=== PATIENT | male | born 1975 | race Caucasian/White ===

== ENCOUNTER 2020-01-16 22:42 | Inpatient (IN) | payer SELFPAY ==
[2020-01-17] MEDS ORDERED: HYDROCODONE/ACETAMINOPHEN 5-325 MG TABLET PO ONE (00:47)
[2020-01-17] MEDS ORDERED: NORMAL SALINE 1000 ML 1,000 ML IV ONE (00:47)
--- NOTE | 2020-01-17 00:48 | ER Document Report ---
ED Medical Screen (RME) - General Chief Complaint: Insect Bite Stated Complaint: POSS SPIDER BITE Time Seen by Provider: 01/17/20 00:41 Mode of Arrival: Ambulatory Information source: Patient Notes: Patient states that he was cleaning fish 5 days ago and had a puncture wound while cleaning the fish. Patient states that he started to have swelling in hand pain yesterday. Patient reports subjective fever. Patient with significant swelling to the left hand and the left third finger. Patient with exquisite tenderness with attempts to passively extend the left third finger. Patient with erythema to the palmar and dorsal surface of the left hand and left third finger. Patient reports tetanus immunizations currently up-to-date. I have greeted and performed a rapid initial assessment of this patient. A comprehensive ED assessment and evaluation of the patient, analysis of test results and completion of the medical decision making process will be conducted by additional ED providers. Physical Exam - General General appearance: Alert Notes: Erythema to left hand the left third finger with swelling. Patient with puncture wound to dorsal aspect of the left hand although he reports a history of a puncture wound to the palmar surface of the third finger proximal phalanx
[2020-01-17 01:21] LABS: ABSOLUTE BASOPHILS # (AUTO) 0.1 10^3/uL (0.0-0.2); ABSOLUTE EOSINOPHILS # (AUTO) 0.2 10^3/uL (0.0-0.6); ABSOLUTE LYMPHOCYTES (AUTO) 2.5 10^3/uL (0.5-4.7); ABSOLUTE MONOCYTES (AUTO) 1.4 10^3/uL (0.1-1.4); ABSOLUTE NEUT (AUTO) 10.4 10^3/uL (1.7-8.2); BASOPHILS % (AUTO) 0.4 % (0-2); EOSINOPHILS % (AUTO) 1.6 % (0-6); HEMATOCRIT 39.2 % (37.9-51.0); HEMOGLOBIN 13.4 g/dL (13.5-17.0); LYMPHOCYTES % (AUTO) 17.5 % (13-45); MEAN CORPUSCULAR HEMOGLOBIN 29.3 pg (27.0-33.4); MEAN CORPUSCULAR HGB CONC 34.2 g/dL (32.0-36.0); MEAN CORPUSCULAR VOLUME 86 fl (80-97); MONOCYTES % (AUTO) 9.4 % (3-13); PLATELET COUNT 314 10^3/uL (150-450); RED BLOOD COUNT 4.58 10^6/uL (4.35-5.55); RED CELL DISTRIBUTION WIDTH 13.7 % (11.5-14.0); SEGMENTED NEUTROPHILS % (AUTO) 71.1 % (42-78); TOTAL CELLS COUNTED % (AUTO) 100 %; WHITE BLOOD COUNT 14.6 10^3/uL (4.0-10.5)
--- NOTE | 2020-01-17 01:39 | RADIOLOGY REPORT (SQ) ---
CLINICAL INDICATION: hand infection/PW. . TECHNIQUE: 3 view(s) were obtained of the left hand. COMPARISON: None. FINDINGS: No acute displaced fracture is identified of the hand. Alignment appears anatomic. Joint spaces are within normal limits for age. Soft tissue swelling. No retained radiopaque foreign bodies appreciated. IMPRESSION: No evidence of acute bony injury to the hand. Soft tissue swelling. No retained radiopaque foreign body
[2020-01-17 01:45] LABS: ALKALINE PHOSPHATASE 91 U/L (38-126); ANION GAP 10 (5-19); ASPARTATE AMINO TRANSFERASE 33 U/L (17-59); BILIRUBIN,DIRECT 0.3 mg/dL (0.0-0.4); BILIRUBIN,TOTAL 0.5 mg/dL (0.2-1.3); BLOOD UREA NITROGEN 6 mg/dL (7-20); CALCIUM 9.2 mg/dL (8.4-10.2); CARBON DIOXIDE 28 mmol/L (22-30); CHLORIDE 96 mmol/L (98-107); GLUCOSE 142 mg/dL (75-110); POTASSIUM 4.3 mmol/L (3.6-5.0); TOTAL PROTEIN 7.1 g/dL (6.3-8.2)
[2020-01-17 01:59] LABS: ERYTHROCYTE SEDIMENTATION RATE 88 mm/hr (0-15)
[2020-01-17] MEDS ORDERED: DOXYCYCLINE HYCLATE INJ 100 MG VIAL IV ONE (04:23)
--- NOTE | 2020-01-17 04:25 | ER Document Report ---
ED General - General Chief Complaint: Hand Swelling Stated Complaint: POSS SPIDER BITE Time Seen by Provider: 01/17/20 00:41 Mode of Arrival: Ambulatory Notes: Patient is a 44-year-old male who presents the emergency department with a chief complaint of left hand pain and swelling. Patient states that about 5 days ago he was cleaning a flounder fish from [employer] and did not think anything of it. He states that he ended up having increased pain and swelling yesterday. Patient has history of brain surgery in 2017. - Related Data Allergies/Adverse Reactions: No Known Allergies Allergy (Unverified 01/17/20 04:05) Past Medical History - General Information source: Patient - Social History Smoking Status: Current Every Day Smoker Frequency of alcohol use: Occasional Drug Abuse: None Family History: Reviewed & Not Pertinent Patient has homicidal ideation: No Review of Systems - Review of Systems Notes: REVIEW OF SYSTEMS: CONSTITUTIONAL : Denies recent illness. Denies recent unintentional weight loss. Denies fever, chills, or sweats. EENT: Denies eye, ear, throat, or mouth pain, discharge, or symptoms. Denies nasal or sinus congestion. CARDIOVASCULAR: Denies chest pain. RESPIRATORY: Denies shortness of breath, cough, congestion, difficulty breathing, or wheezing. GASTROINTESTINAL: Denies nausea, vomiting, and diarrhea. Denies abdominal pain. Denies constipation. GENITOURINARY: Denies difficulty urinating, burning, blood in urine, urgency or frequency. MUSCULOSKELETAL: Denies neck and back pain. See HPI. SKIN: Denies rash, itchiness, or lesions HEMATOLOGIC : Denies easy bruising or bleeding. LYMPHATIC: Denies swollen, painful, enlarged glands. NEUROLOGICAL: Denies no numbness or tingling denies weakness. Denies headache. Denies altered mental status. Denies alteration in speech. PSYCHIATRIC: Denies stress, anxiety, alteration in sleep patterns, or depression. All other systems reviewed and negative. Physical Exam - Vital signs Vitals: Temp Pulse Resp BP Pulse Ox 98.0 F 120 H 18 173/99 H 98 01/16/20 22:42 01/16/20 22:42 01/16/20 22:42 01/16/20 22:42 01/16/20 22:42 - Notes Notes: PHYSICAL EXAMINATION: GENERAL: Appears well, healthy, well-nourished, no acute distress. HEAD: Normocephalic, atraumatic. EYES: PERRL, conjunctiva normal, all extraocular movements intact, sclera nonicteric ENT: Moist mucous membranes. NECK: Supple, no noticeable swelling, redness, rash. Normal range of motion. LUNGS: Equal breath sounds bilaterally and clear to auscultation. No wheezes rales or rhonchi. CARDIOVASCULAR: S1-S2, regular rate, regular rhythm. Radial pulses 2+, normal. ABDOMEN: Normoactive bowel sounds. Soft, nontender, no guarding, no rebound tenderness, and no masses palpated. EXTREMITIES: Erythema and edema noted to left third and fourth digit. NEUROLOGICAL: Patient unable to extend left third digit. PSYCH: Normal mood, normal affect. SKIN: Warm, dry. Erythema noted to left third and fourth digit. Purulent drainage noted when incised left proximal third phalanx. Course - Re-evaluation Re-evalutation: 01/17/20 04:33 Patient is a leukocytosis of 14,600 with a left shift. ESR is 88. See reactive protein is 231. Chemistries are unremarkable. Based off patient's physical exam, it appears patient has tenosynovitis. We will start the patient on doxycycline to cover vibrio infection, as patient was filleting a fish. 01/17/20 04:[address] Cook through the chemical operator for admission. Will await callback. 01/17/20 05:[address] Cook, the orthopedic doctor. He would like me to digital block the patient and incise the area where the patient has pain. 01/17/20 06:13 I digital block the patient and I was able to puncture his proximal phalanx and pus came out. Paged Dr. Cook. Will wait for a call back. 01/17/20 06:[address] Cook patient will be brought to the operating room. - Vital Signs Vital signs: Temp Pulse Resp BP Pulse Ox 98.7 F 110 H 18 177/104 H 98 01/17/20 06:21 01/17/20 06:21 01/17/20 07:00 01/17/20 06:21 01/17/20 06:21 - Laboratory Result Diagrams: 01/17/20 01:01 01/17/20 01:01 Laboratory results interpreted by me: 01/17/20 01/17/20 01:01 01:01 WBC 14.6 H Hgb 13.4 L Absolute Neuts (auto) 10.4 H ESR 88 H Sodium 134.0 L Chloride 96 L BUN 6 L Glucose 142 H C-Reactive Protein 231.0 H Procedures - Incision and Drainage Left Proximal Finger 3rd digit Anesthetic type: 0.5% Bupivacaine mL's of anesthetic: 10 Blade size: 11 I&D procedure: Betadine prep applied Incision Method: Incision made by scalpel Amount/type of drainage: 5 mL blood/purulent drainage Discharge - Discharge Clinical Impression: Tenosynovitis Sepsis Qualifiers: Sepsis type: sepsis due to unspecified organism Sepsis acute organ dysfunction status: unspecified Qualified Code(s): A41.9 - Sepsis, unspecified organism Condition: Fair Disposition: ADMITTED INPATIENT Admitting Provider: Dr. Cook Unit Admitted: OR
[2020-01-17] MEDS ORDERED: MORPHINE SULFATE 10 MG/ML INJ IV ONE ×3 (04:27→09:31)
[2020-01-17] MEDS ORDERED: BUPIVACAINE HCL 0.5 % INJ/PF 30 ML SDV INJ ONE (05:08)
[2020-01-17] MEDS ORDERED: PIPERACILLIN/TAZOBACTAM 3.375 GM VIAL IV ONE (06:16)
[2020-01-17] MEDS ORDERED: FENTANYL CITRATE INJ/PF 100 MCG/2 ML AMPUL ONE (10:51)
[2020-01-17] MEDS ORDERED: PROPOFOL INJ 200 MG/20 ML VIAL IV ONE (10:52)
[2020-01-17] MEDS ORDERED: MIDAZOLAM 2 MG/2 ML INJ ONE (10:52)
[2020-01-17] MEDS ORDERED: ONDANSETRON HCL INJ/PF 4 MG/2 ML SDV ONE (10:52)
[2020-01-17] MEDS ORDERED: LIDOCAINE 1% INJ-PF (10 MG/ML) 30 ML SDV ONE (11:02)
[2020-01-17] MEDS ORDERED: BUPIVACAINE HCL 0.25 % INJ/PF (2.5 MG/1 ML) 30 ML VIAL ONE (11:02)
[2020-01-17] MEDS ORDERED: BACITRACIN INJ 50,000 UNIT VIAL ONE (11:02)
--- NOTE | 2020-01-17 11:38 | PDOC H&P ---
History of Present Illness Admission Date/PCP: 01/17/20 06:35 LADY SALAS PA-C Patient complains of: Left middle finger pain, swelling, loss of motion History of Present Illness: DEMETRA FARLEY is a 44 year old male who presented to the ER this morning co mplaining of worsening pain, swelling, and loss of motion of his left long finger. The patient reports accidentally cutting his finger 5 days ago while cleaning fish. Symptoms have been progressively worsening. Past Medical History Cardiac Medical History: Reports: Hypertension Pulmonary Medical History: Reports: None EENT Medical History: Reports: None Neurological Medical History: Reports: Other - 2 prior brain surgeries Endocrine Medical History: Denies: None, Diabetes Mellitus Type 1, Diabetes Mellitus Type 2, Gestational Diabetes, Hyperthyroidism, Hypothyroidism, Obesity, Other Renal/ Medical History: Denies: None, Chronic Kidney Disease, End Stage Renal Disease, Nephrolithiasis, Other Malignancy Medical History: Denies: None, Bone Cancer, Brain Cancer, Breast Cancer, Cervical Cancer, Colorectal Cancer, Leukemia, Liver Cancer, Lung Cancer, Lymphoma, Ovarian Cancer, Pancreatic Cancer, Renal (Kidney) Cancer, Skin Cancer, Other GI Medical History: Denies: None, Cirrhosis, Crohn's Disease, Diverticulitis, Gastroesophageal Reflux Disease, Hepatitis, Hiatal Hernia, Peptic Ulcer Disease, Ulcerative Colitis, Other Musculoskeltal Medical History: Denies: None, Arthritis, Fibromyalgia, Gout, Other Skin Medical History: Denies: None, Eczema, Psoriasis, Other Traumatic Medical History: Denies: None, Gunshot Wound, Pneumothorax, Stab Wound, Traumatic Brain Injury, Other Hematology: Denies: None, Anemia, Hemophilia, Sickle Cell Disease, Bleeding Tendencies, Heparin Induced Thrombocytopenia, Neutropenia, Other Infectious Medical History: Denies: None, Clostridium Difficile, Hepatitis B, Hepatitis C, HIV, Methicillin-Resistant Staph Aureus, Vancomycin-Resistant Enterococci, Other Past Surgical History Past Surgical History: Reports: Other - 2 prior brain surgeries. Patient is unclear regarding the diagnosis. Social History Smoking Status: Current Every Day Smoker Frequency of Alcohol Use: Heavy - States 3 drinks per day Hx Recreational Drug Use: Yes Drugs: Marijuana Family History Family History: Reviewed & Not Pertinent Parental Family History Reviewed: Yes Children Family History Reviewed: No Sibling(s) Family History Reviewed.: No Medication/Allergy Home Medications: No Home Medications 01/17/20 Allergies/Adverse Reactions: No Known Allergies Allergy (Unverified 01/17/20 04:05) Review of Systems ROS unobtainable: Other - Per HPI Physical Exam Vital Signs: Temp Pulse Resp BP Pulse Ox 98.7 F 110 H 18 177/104 H 98 01/17/20 06:21 01/17/20 06:21 01/17/20 07:00 01/17/20 06:21 01/17/20 06:21 Intake & Output 01/16/20 01/17/20 01/18/20 06:59 06:59 06:59 Intake Total 1000 Balance 1000 Weight 64.3 kg General appearance: PRESENT: no acute distress, well-developed, well-nourished Head exam: PRESENT: atraumatic, normocephalic Teeth exam: PRESENT: poor dentation Neck exam: PRESENT: full ROM Respiratory exam: PRESENT: clear to auscultation garrett. ABSENT: rales, rhonchi, wheezes Cardiovascular exam: ABSENT: bradycardia, clicks, diastolic murmur, gallop, ir regular rhythm, RRR, rubs, +S1, +S2, systolic murmur, tachycardia, other GI/Abdominal exam: PRESENT: normal bowel sounds, soft. ABSENT: distended, guarding, mass, organolmegaly, rebound, tenderness Rectal exam: PRESENT: deferred Musculoskeletal exam: PRESENT: other - There is swelling of the flexor tendon sheath of the left long finger. There is tenderness to palpation of the flexor tendon sheath. The finger is maintained in a slightly flexed posture. Extension of the digit causes discomfort. Sensation is intact to touch. There is good capillary refill present. Neurological exam: PRESENT: alert, oriented to situation Psychiatric exam: PRESENT: appropriate affect, normal mood. ABSENT: homicidal ideation, suicidal ideation Results Laboratory Results: 01/17/20 01:01 01/17/20 01:01 01/17/20 01/17/20 01:01 01:01 WBC 14.6 H RBC 4.58 Hgb 13.4 L Hct 39.2 MCV 86 MCH 29.3 MCHC 34.2 RDW 13.7 Plt Count 314 Seg Neutrophils % 71.1 Sodium 134.0 L Potassium 4.3 Chloride 96 L Carbon Dioxide 28 Anion Gap 10 BUN 6 L Creatinine 0.82 Est GFR ( Amer) > 60 Glucose 142 H Calcium 9.2 Total Bilirubin 0.5 AST 33 Alkaline Phosphatase 91 C-Reactive Protein 231.0 H Total Protein 7.1 Albumin 4.0 Impressions: Hand X-Ray 01/17/20 00:46 IMPRESSION: No evidence of acute bony injury to the hand. Soft tissue swelling. No retained radiopaque foreign body Assessment & Plan - Time Time Spent: 30 to 50 Minutes Critical Time spent with patient: 35 or more minutes Smoking Cessation Education: 3 to 10 minutes Anticipated Discharge Disposition: Home, Self Care Anticipated Discharge Timeframe: When cultures finalized - Plan Summary Plan Summary: Patient has symptoms of separative flexor tenosynovitis. I have recommended incision and debridement. Cultures will be taken and sent to microbiology. Patient will be started on broad-spectrum antibiotics to cover common as well as atypical organisms due to the marine exposure. Risk, benefits, and alternatives were discussed with the patient. An opportunity for questions was provided. All questions were answered to his satisfaction. In particular we did discuss the possible risk of amputation of the digit as symptoms have been worsening over a 5-day period without any treatment. I discussed with him that delay in treatment significantly worsens the outcomes of these infections. The patient expressed understanding and wishes to proceed with surgical debridement.
[2020-01-17] MEDS ORDERED: LIDOCAINE 1%/EPINEPHRINE INJ 20 ML VIAL ONE (11:59)
[2020-01-17] MEDS ORDERED: MORPHINE SULFATE 10 MG/ML INJ IV PRN (12:30)
[2020-01-17] MEDS ORDERED: MEPERIDINE HCL/PF INJ 25 MG/1 ML DISP.SYRIN IV PRN (12:30)
[2020-01-17] MEDS ORDERED: FENTANYL CITRATE INJ/PF 100 MCG/2 ML AMPUL IV PRN ×3 (12:30)
[2020-01-17] MEDS ORDERED: DIPHENHYDRAMINE HCL 50 MG/ML VIAL IV PRN (12:30)
[2020-01-17] MEDS ORDERED: OXYCODONE-ACETAMINOPHEN 5-325 MG TABLET PO PRN ×2 (12:30)
[2020-01-17] MEDS ORDERED: PROMETHAZINE HCL INJ 25 MG/1 ML VIAL IV PRN ×2 (12:30)
--- NOTE | 2020-01-17 12:56 | Operative Report ---
Operative Report DATE OF SURGERY: 01/17/20 PREOPERATIVE DIAGNOSIS: Left long finger suppurative flexor tenosynovitis POSTOPERATIVE DIAGNOSIS: Same OPERATION: Incision and debridement left long finger suppurative flexor tenosynovitis SURGEON: MONSE CASPER ANESTHESIA: Other - Nerve block with sedation TISSUE REMOVED OR ALTERED: Tenosynovium removed and sent to pathology for analysis of fungi and atypical Mycobacterium COMPLICATIONS: None ESTIMATED BLOOD LOSS: Minimal INTRAOPERATIVE FINDINGS: Purulent fluid within the flexor tendon sheath of the left long finger PROCEDURE: Indications for procedure: The patient is a 44-year-old man who presented to the emergency room early this morning complaining of worsening pain, swelling, and loss of motion of the left long finger. He reports cutting the finger 5 days ago while filleting a flounder. Description of procedure: Following a wrist nerve blockade performed by the anesthesiologist and moderate sedation, the patient was positioned supine on the operating room table. A tourniquet was placed proximally on the left arm but not inflated. The left upper extremity was sterilely prepped with ChloraPrep and draped in standard fashion. The arm was exsanguinated with gravity elevation and an Esmarch from the palm to the forearm. The tourniquet was inflated to 250 mmHg. There were 2 incisions made to access the flexor sheath. The first incision was made in the palm between the proximal and distal palmar crease. A sharp incision was performed through skin with blunt dissection of the subcutaneous tissue. Care was taken to identify and protect the digital arteries and nerves. The A1 katie was opened. At this point purulent drainage was encountered. 2 wound cultures were taken. Synovium was also harvested and sent as well to pathology for evaluation for atypical Mycobacterium and fungus. A second incision was made on the radial mid lateral aspect of the digit. The skin was sharply incised and blunt dissection was used to protect the digital artery and nerve. The A5 katie as well as the distal half of the A4 katie was opened. An angiocatheter was then placed through the incision in the palm under the A2 katie. 1 L of normal saline with bacitracin was then irrigated through the flexor tendon sheath. Of note the irrigation passed easily through the sheath. Following irrigation there was no purulent or cloudy drainage present. All wounds were left open specifically to allow the egress of fluid. Postoperatively the patient will be placed on broad-spectrum antibiotics. The patient will perform soaks of his hand. An infectious disease consult has been requested.
[2020-01-17] MEDS ORDERED: SODIUM HYPOCHLORITE 0.25% SOLN 473 ML BOTTLE TP PRN (13:15)
[2020-01-17] MEDS ORDERED: NORMAL SALINE 1000 ML 1,000 ML IV PRN (13:28)
[2020-01-17] MEDS: VANCOMYCIN HCL 750 MG in DEXTROSE 5%-WATER 250 ML IV SCH ×2 (14:46→21:26)
[2020-01-17] MEDS: IBUPROFEN 600 MG TABLET PO PRN (14:59)
[2020-01-17] MEDS: OXYCODONE-ACETAMINOPHEN 5-325 MG TABLET PO PRN ×4 (15:00→21:25)
[2020-01-17] MEDS: SODIUM HYPOCHLORITE 0.25% SOLN 473 ML BOTTLE TP SCH ×2 (15:35→17:19)
[2020-01-17] MEDS ORDERED: OXYCODONE-ACETAMINOPHEN 5-325 MG TABLET PO ONE (16:00)
[2020-01-17] MEDS: ACETAMINOPHEN 325 MG TABLET PO PRN (19:06)
[2020-01-17] MEDS: CEFTAZIDIME PENTAHYDRATE 2 GM in DEXTROSE 5%-WATER 100 ML IV SCH (21:25)
[2020-01-17] MEDS ORDERED: VANCOMYCIN HCL 1,000 MG in DEXTROSE 5%-WATER 250 ML IV SCH (22:00)
[2020-01-18] MEDS: OXYCODONE-ACETAMINOPHEN 5-325 MG TABLET PO PRN ×3 (04:11→18:11)
[2020-01-18] MEDS: VANCOMYCIN HCL 750 MG in DEXTROSE 5%-WATER 250 ML IV SCH ×2 (05:21→13:49)
[2020-01-18 06:16] LABS: HEMATOCRIT 38.7 % (37.9-51.0); HEMOGLOBIN 13.2 g/dL (13.5-17.0); MEAN CORPUSCULAR HEMOGLOBIN 29.3 pg (27.0-33.4); MEAN CORPUSCULAR HGB CONC 34.1 g/dL (32.0-36.0); MEAN CORPUSCULAR VOLUME 86 fl (80-97); PLATELET COUNT 306 10^3/uL (150-450); RED BLOOD COUNT 4.51 10^6/uL (4.35-5.55); WHITE BLOOD COUNT 9.1 10^3/uL (4.0-10.5)
[2020-01-18] MEDS: IBUPROFEN 600 MG TABLET PO PRN ×2 (08:37→20:04)
[2020-01-18] MEDS: ACETAMINOPHEN 325 MG TABLET PO PRN ×2 (09:44→21:24)
[2020-01-18] MEDS: CEFTAZIDIME PENTAHYDRATE 2 GM in DEXTROSE 5%-WATER 100 ML IV SCH ×2 (09:44→21:13)
--- NOTE | 2020-01-18 10:58 | Progress Note ---
Provider Note Provider Note: [facility] ID Telephone Advice Consultation Chart reviewed. Patient is a 44-year-old man with history of hypertension who 6 days ago was fishing and sustained a wound on his left 3rd finger. It initially didn't bother him, but later on he experienced pain and swelling, now ROM limitation. He also had subjective fevers. He was evaluated in the ED and had puncture of the proximal phalanx of the left middle finger with aspiration of purulent fluid. Orthopedics was consulted and patient was taken to the OR yesterday. Per operative note, this was a suppurative flexor tenosynovitis. Tissue was sent for anaerobic/aerobic, fungal and AFB cultures. Blood cultures remain negative in 24 hr, other cultures are in process. He had leukocytosis and tachycardia on admission. CRP 231. Patient was started on ceftazidime. ID consulted for recommendations. PMH: Hypertension PSH: Brain surgery Medications: No Home Medications 01/17/20 [History] Vital Signs: Temp Pulse Resp BP Pulse Ox 97.8 F 92 17 169/98 H 99 01/18/20 07:38 01/18/20 07:38 01/18/20 07:38 01/18/20 07:38 01/18/20 07:38 Intake & Output 01/17/20 01/18/20 01/19/20 06:59 06:59 06:59 Intake Total 1000 2460 Output Total 1226 Balance 1000 1234 Weight 64.3 kg 64.3 kg Weight/Height Weight 64.3 kg Height 5 ft 6 in Laboratories: 01/18/20 05:14 01/17/20 01:01 MCV 86 fl (80-97) 01/18/20 05:14 MCH 29.3 pg (27.0-33.4) 01/18/20 05:14 MCHC 34.1 g/dL (32.0-36.0) 01/18/20 05:14 RDW 14.0 % (11.5-14.0) 01/18/20 05:14 Seg Neutrophils % 71.1 % (42-78) 01/17/20 01:01 Chloride 96 mmol/L (98-107) L 01/17/20 01:01 Carbon Dioxide 28 mmol/L (22-30) 01/17/20 01:01 Anion Gap 10 (5-19) 01/17/20 01:01 Est GFR ( Amer) > 60 (>60) 01/17/20 01:01 Glucose 142 mg/dL (75-110) H 01/17/20 01:01 Calcium 9.2 mg/dL (8.4-10.2) 01/17/20 01:01 Total Bilirubin 0.5 mg/dL (0.2-1.3) 01/17/20 01:01 AST 33 U/L (17-59) 01/17/20 01:01 Alkaline Phosphatase 91 U/L (38-126) 01/17/20 01:01 C-Reactive Protein 192.8 mg/L (<10.0) H 01/18/20 05:14 Total Protein 7.1 g/dL (6.3-8.2) 01/17/20 01:01 Albumin 4.0 g/dL (3.5-5.0) 01/17/20 01:01 Microbiology: Blood cultures 01/16 In process Tissue cultures 01/16 In process (WBC, RBC) Radiology: Hand X-Ray 01/17/20 00:46 IMPRESSION: No evidence of acute bony injury to the hand. Soft tissue swelling. No retained radiopaque foreign body Assessment and Recommendations: Patient evaluated due to left middle finger suppurative flexor tenosynovitis in the the setting of puncture with sea water exposure. He is afebrile, HD stable. Leukocytosis improved. He is s/p I&D. Elevated CRP. X ray of the hand consistent with soft tissue swelling. He is on ceftazidime. Organisms to consider as pathogens in the setting of sea water exposure include: Pseudomonas spp, Aeromonas spp, Vibrio vulnificus, Mycobacterium marinum. Wounds can become secondarily infected with MRSA and anaerobes like Bacteroides. NTM as M marinum tend to be more indolent, causing granulomatous inflammation (it needs to be incubated at 28-30 degrees in order to be isolated). Ceftazidime 1g every 8 hr adequate for GNR, would add doxycycline and vancomycin. Another regimen to consider would be linezolid 600 mg bid + doxycycline 100 mg bid and zosyn. This regimen has a broader coverage for all these organisms. Will follow cultures. Geri Manzo MD [facility] [id number]
[2020-01-18] MEDS: DOXYCYCLINE HYCLATE 100 MG TABLET PO SCH ×2 (13:27→21:12)
[2020-01-18 14:39] LABS: VANCOMYCIN,TROUGH 8.8 ug/mL (5.0-20.0)
--- NOTE | 2020-01-18 14:43 | PDOC PROGRESS REPORT ---
Subjective Progress Note for:: 01/18/20 Subjective:: The patient states that his finger is feeling improved. He states that he would like to go home today. There are no other complaints. Reason For Visit: LEFT LONG FINGER SUPPORATIVE FLEXON TENOSYNOVITIS Postoperative day #1 status post incision and debridement left long finger suppurative flexor tenosynovitis Physical Exam Vital Signs: Temp Pulse Resp BP Pulse Ox 97.8 F 92 17 169/98 H 99 01/18/20 10:00 01/18/20 07:38 01/18/20 07:38 01/18/20 07:38 01/18/20 07:38 Intake & Output 01/17/20 01/18/20 01/19/20 06:59 06:59 06:59 Intake Total 1000 2460 Output Total 1226 Balance 1000 1234 Weight 64.3 kg 64.3 kg General appearance: PRESENT: no acute distress, well-developed, well-nourished Respiratory exam: PRESENT: clear to auscultation garrett. ABSENT: rales, rhonchi, wheezes Cardiovascular exam: PRESENT: RRR. ABSENT: diastolic murmur, rubs, systolic murmur Musculoskeletal exam: PRESENT: other - The wound on the mid lateral aspect of the long finger as well as of the surgical wound in the palm remain open. There is some mild bleeding from the mid lateral incision. The flexor sheath over the proximal phalanx remains swollen. This area is no longer tender to palpation. Compression was applied to this area and there was no purulent drainage expressed proximally or distally. There is good capillary refill of the digit. Results Laboratory Results: 01/18/20 05:14 01/18/20 01/18/20 05:14 05:14 WBC 9.1 RBC 4.51 Hgb 13.2 L Hct 38.7 MCV 86 MCH 29.3 MCHC 34.1 RDW 14.0 Plt Count 306 C-Reactive Protein 192.8 H Impressions: Hand X-Ray 01/17/20 00:46 IMPRESSION: No evidence of acute bony injury to the hand. Soft tissue swelling. No retained radiopaque foreign body Assessment & Plan - Diagnosis (1) Sepsis Qualifiers: Sepsis type: sepsis due to unspecified organism Sepsis acute organ dysfunction status: unspecified Qualified Code(s): A41.9 - Sepsis, unspecified organism (2) Tenosynovitis Is this a current diagnosis for this admission?: Yes - Time Critical Time spent with patient: 25-34 minutes Medications reviewed and adjusted accordingly: Yes Anticipated Discharge Disposition: Home, Self Care Anticipated Discharge Timeframe: within 72 hours - Plan Summary Plan Summary: Postoperative day #1 status post incision and debridement left long finger for separative flexor tenosynovitis Appreciate infectious disease consultation. The patient had already been on vancomycin and ceftazidime. We have added doxycycline per the infectious disease consultants recommendations. The patient is clinically improving. White blood count and CRP are both decreasing nicely. Unfortunately wound cultures and Gram stain remain negative. I have discussed with the patient that he needs to remain hospitalized until we have identified a causative organism so that we can recommend an outpatient antibiotic regimen.
[2020-01-18] MEDS: SODIUM HYPOCHLORITE 0.25% SOLN 473 ML BOTTLE TP SCH ×2 (18:08→21:19)
[2020-01-18] MEDS: VANCOMYCIN HCL 1,000 MG in DEXTROSE 5%-WATER 250 ML IV SCH (22:44)
[2020-01-19] MEDS: OXYCODONE-ACETAMINOPHEN 5-325 MG TABLET PO PRN ×3 (00:27→14:57)
[2020-01-19] MEDS: VANCOMYCIN HCL 1,000 MG in DEXTROSE 5%-WATER 250 ML IV SCH ×3 (05:47→21:30)
[2020-01-19] MEDS: IBUPROFEN 600 MG TABLET PO PRN ×3 (05:48→22:10)
[2020-01-19] MEDS: SODIUM HYPOCHLORITE 0.25% SOLN 473 ML BOTTLE TP SCH ×6 (05:54→21:31)
[2020-01-19 06:45] LABS: HEMATOCRIT 36.5 % (37.9-51.0); HEMOGLOBIN 12.4 g/dL (13.5-17.0); MEAN CORPUSCULAR HEMOGLOBIN 29.2 pg (27.0-33.4); MEAN CORPUSCULAR HGB CONC 34.1 g/dL (32.0-36.0); MEAN CORPUSCULAR VOLUME 86 fl (80-97); PLATELET COUNT 334 10^3/uL (150-450); RED BLOOD COUNT 4.26 10^6/uL (4.35-5.55); WHITE BLOOD COUNT 7.1 10^3/uL (4.0-10.5)
[2020-01-19] MEDS: CEFTAZIDIME PENTAHYDRATE 2 GM in DEXTROSE 5%-WATER 100 ML IV SCH (09:03)
[2020-01-19] MEDS: DOXYCYCLINE HYCLATE 100 MG TABLET PO SCH ×2 (09:03→21:31)
--- NOTE | 2020-01-19 14:43 | PDOC PROGRESS REPORT ---
Subjective Progress Note for:: 01/19/20 Subjective:: The patient states that his finger is improving. There are no other complaints. Reason For Visit: LEFT LONG FINGER SUPPORATIVE FLEXON TENOSYNOVITIS POD # 2 s/p incision and debridement left long finger suppurative tenosynovitis Physical Exam Vital Signs: Temp Pulse Resp BP Pulse Ox 97.3 F 80 18 135/85 H 97 01/19/20 08:58 01/19/20 07:27 01/19/20 07:27 01/19/20 07:27 01/19/20 07:27 Intake & Output 01/18/20 01/19/20 01/20/20 06:59 06:59 06:59 Intake Total 2460 1630 Output Total 1226 1450 Balance 1234 180 Weight 64.3 kg 62.8 kg General appearance: PRESENT: no acute distress, well-developed, well-nourished Respiratory exam: PRESENT: clear to auscultation garrett. ABSENT: rales, rhonchi, wheezes Cardiovascular exam: PRESENT: RRR. ABSENT: diastolic murmur, rubs, systolic murmur Musculoskeletal exam: PRESENT: other - The surgical incisions remain open. There is no purulent drainage present. Capillary refill is normal. Results Laboratory Results: 01/19/20 05:16 01/18/20 13:45 01/18/20 01/19/20 13:45 05:16 WBC 7.1 RBC 4.26 L Hgb 12.4 L Hct 36.5 L MCV 86 MCH 29.2 MCHC 34.1 RDW 14.0 Plt Count 334 Creatinine 0.86 Est GFR ( Amer) > 60 Impressions: Hand X-Ray 01/17/20 00:46 IMPRESSION: No evidence of acute bony injury to the hand. Soft tissue swelling. No retained radiopaque foreign body Assessment & Plan - Diagnosis (1) Sepsis Qualifiers: Sepsis type: sepsis due to unspecified organism Sepsis acute organ dysfunction status: unspecified Qualified Code(s): A41.9 - Sepsis, unspecified organism (2) Tenosynovitis Is this a current diagnosis for this admission?: Yes - Time Critical Time spent with patient: Less than 15 minutes Anticipated Discharge Disposition: Home, Self Care Anticipated Discharge Timeframe: within 72 hours - Plan Summary Plan Summary: Postoperative day #2 status post incision and debridement left long finger for separative flexor tenosynovitis The patient is clinically improving with a decreasing WBC count. He continues on broad spectrum antibiotics: Vancomycin, ceftazidime, and doxycycline. Blood cultures, wound cultures and Gram stain remain negative. I have discussed with the patient that he needs to remain hospitalized until we have identified a causative organism so that we can recommend an outpatient antibiotic regimen. The patient will continue soaks of the left hand.
[2020-01-19] MEDS: CEFTAZIDIME PENTAHYDRATE 1 GM in DEXTROSE 5%-WATER 50 ML IV SCH (17:13)
[2020-01-20] MEDS: CEFTAZIDIME PENTAHYDRATE 1 GM in DEXTROSE 5%-WATER 50 ML IV SCH ×2 (01:29→10:32)
[2020-01-20] MEDS: OXYCODONE-ACETAMINOPHEN 5-325 MG TABLET PO PRN ×3 (01:34→15:31)
[2020-01-20 06:01] LABS: HEMATOCRIT 36.7 % (37.9-51.0); HEMOGLOBIN 12.4 g/dL (13.5-17.0); MEAN CORPUSCULAR HEMOGLOBIN 28.9 pg (27.0-33.4); MEAN CORPUSCULAR HGB CONC 33.8 g/dL (32.0-36.0); MEAN CORPUSCULAR VOLUME 86 fl (80-97); PLATELET COUNT 341 10^3/uL (150-450); RED BLOOD COUNT 4.29 10^6/uL (4.35-5.55); RED CELL DISTRIBUTION WIDTH 13.7 % (11.5-14.0); WHITE BLOOD COUNT 7.1 10^3/uL (4.0-10.5)
[2020-01-20] MEDS: VANCOMYCIN HCL 1,000 MG in DEXTROSE 5%-WATER 250 ML IV SCH ×2 (06:09→14:59)
[2020-01-20] MEDS: SODIUM HYPOCHLORITE 0.25% SOLN 473 ML BOTTLE TP SCH ×4 (06:10→15:04)
[2020-01-20] MEDS: IBUPROFEN 600 MG TABLET PO PRN ×2 (06:12→17:29)
[2020-01-20 06:27] LABS: VANCOMYCIN,TROUGH 14.5 ug/mL (5.0-20.0)
[2020-01-20 07:01] LABS: ERYTHROCYTE SEDIMENTATION RATE 91 mm/hr (0-15)
[2020-01-20] MEDS: DOXYCYCLINE HYCLATE 100 MG TABLET PO SCH (09:38)
[2020-01-20] MEDS ORDERED: NICOTINE 21 MG/24 HR PATCH.TD24 TD SCH (10:00)
--- NOTE | 2020-01-20 10:27 | Progress Note ---
Provider Note Provider Note: [facility] ID Telephone Advice Follow Up Update: Patient is day #3 post op. He had I&D of the left 3rd finger due to suppurative flexor tenosynovitis. Per notes, his finger has significantly improved, pain and swelling improved. He has been afebrile and HD stable. Leukocytosis has resolved and renal function remains stable. He has been on vancomycin, doxycycline and ceftazidime. All cultures remain negative. Vital Signs: Temp Pulse Resp BP Pulse Ox 97.8 F 78 18 142/93 H 98 01/20/20 09:54 01/20/20 07:20 01/20/20 07:20 01/20/20 07:20 01/20/20 07:20 Intake & Output 01/19/20 01/20/20 01/21/20 06:59 06:59 06:59 Intake Total 1630 2550 467 Output Total 1450 Balance 180 2550 467 Weight 62.8 kg 64.3 kg Weight/Height Weight 64.3 kg Height 5 ft 6 in Laboratories: 01/20/20 05:18 01/20/20 05:18 MCV 86 fl (80-97) 01/20/20 05:18 MCH 28.9 pg (27.0-33.4) 01/20/20 05:18 MCHC 33.8 g/dL (32.0-36.0) 01/20/20 05:18 RDW 13.7 % (11.5-14.0) 01/20/20 05:18 Seg Neutrophils % 71.1 % (42-78) 01/17/20 01:01 Chloride 96 mmol/L (98-107) L 01/17/20 01:01 Carbon Dioxide 28 mmol/L (22-30) 01/17/20 01:01 Anion Gap 10 (5-19) 01/17/20 01:01 Est GFR ( Amer) > 60 (>60) 01/20/20 05:18 Glucose 142 mg/dL (75-110) H 01/17/20 01:01 Calcium 9.2 mg/dL (8.4-10.2) 01/17/20 01:01 Total Bilirubin 0.5 mg/dL (0.2-1.3) 01/17/20 01:01 AST 33 U/L (17-59) 01/17/20 01:01 Alkaline Phosphatase 91 U/L (38-126) 01/17/20 01:01 C-Reactive Protein 36.9 mg/L (<10.0) H 01/20/20 05:18 Total Protein 7.1 g/dL (6.3-8.2) 01/17/20 01:01 Albumin 4.0 g/dL (3.5-5.0) 01/17/20 01:01 01/17/20 12:04 Finger - Left Middle Finger AFB Smear Concentration - Final 01/17/20 12:04 Finger - Left Middle Finger Acid Fast Bacilli Smear - Final Microbiology: Blood cultures 01/16 In process, NGTD Tissue cultures 01/16 In process (WBC, RBC), NGTD 01/16 AFB smear negative, culture in process 01/16 Fungal culture in process Radiology: Hand X-Ray 01/17/20 00:46 IMPRESSION: No evidence of acute bony injury to the hand. Soft tissue swelling. No retained radiopaque foreign body Assessment and Recommendations: Patient evaluated due to left middle finger suppurative flexor tenosynovitis in the the setting of puncture with sea water exposure. He is afebrile, HD stable. Leukocytosis resolved. He continues on broad spectrum antibiotics. MRSA had not been isolated do far, will recommend to discontinue vancomycin. Other possible causes are Erysipelothrix rhusiopathiae associated with fishing, Vibrio vulnificus, Aeromonas, Pseudomonas, but cultures are usually positive. Can continue doxycycline and ceftazidime, these should cover for these organisms. AFB smear was negative, but culture is in process, Mycobacterium marinum is a slow grower and it may take up to 6 weeks to grow depending on the inoculum. If cultures remain negative for 5 days, may consider treating empirically for M marinum for at least 4 weeks awaiting for cultures. Will follow the cultures to give final recommendations. Geri Manzo MD COUNT INCLUDES THE [facility] ID [phone]
--- NOTE | 2020-01-20 16:06 | Progress Note ---
Provider Note Provider Note: [facility] ID Update: Patient with injury to the 3rd finger while fishing, s/p I&D. Being treated for suppurative flexor tenosynovitis. Tissue culture updated now with 3+ Brevibacterium spp. Susceptibilities will not be done, but this bacteria is a Gram positive coryneiform that can be treated with linezolid. Will recommend linezolid 600 mg po bid for 11 days to complete 14 days total. He is not on an SSRI, no contraindications noted. May have GI upset, but usually well tolerated. Optic neuritis and neuropathy usually associated with prolonged course usually > 2 weeks. Patient should be aware of potential side effects. Please call if questions. Geri Manzo MD [facility] ID [phone]
--- NOTE | 2020-01-20 16:54 | PDOC DISCHARGE SUMMARY ---
Impression - Admit/DC Date/PCP Admission Date/Primary Care Provider: 01/17/20 06:35 LADY SALAS PA-C Discharge Date: 01/20/20 - Discharge Diagnosis (1) Sepsis Is this a current diagnosis for this admission?: Yes (2) Tenosynovitis Is this a current diagnosis for this admission?: Yes - Additional Information Resuscitation Status: Full Code Discharge Diet: As Tolerated Discharge Activity: Activity As Tolerated Referrals: MONSE COOK MD [ACTIVE STAFF] - 02/02/20 12:30 pm Home Medications: Linezolid 600 mg PO BID 01/20/20 History of Present Illiness History of Present Illness: DEMETRA FARLEY is a 44 year old male who presented to the ER with separative flexor tenosynovitis of the left long finger. The patient underwent incision and drainage the same day of presentation. The patient had presented with a markedly elevated white blood cell count, ESR, and CRP. He was started on broad-spectrum antibiotics under consultation with infectious disease: Vancomyc in ceftazidime and doxycycline. The patient's clinically improved with normalization of the white count and market reduction in the CRP. Wound cultures were positive for brevity bacterium. Infectious disease consultation recommended an additional 11 days of linezolid. Hospital Course Hospital Course: The patient underwent incision and drainage the same day of presentation. The patient had presented with a markedly elevated white blood cell count, ESR, and CRP. He was started on broad-spectrum antibiotics under consultation with infectious disease: Vancomycin ceftazidime and doxycycline. The patient's clinically improved with normalization of the white count and market reduction in the CRP. Wound cultures were positive for brevity bacterium. Infectious disease consultation recommended an additional 11 days of linezolid. Physical Exam Vital Signs: Temp Pulse Resp BP Pulse Ox 98.1 F 85 18 151/97 H 99 01/20/20 11:49 01/20/20 11:49 01/20/20 11:49 01/20/20 11:49 01/20/20 11:49 Intake & Output 01/19/20 01/20/20 01/21/20 06:59 06:59 06:59 Intake Total 1630 2550 1642 Output Total 1450 Balance 180 2550 1642 Weight 62.8 kg 64.3 kg 64.3 kg General appearance: PRESENT: no acute distress, well-developed, well-nourished Respiratory exam: PRESENT: clear to auscultation garrett. ABSENT: rales, rhonchi, wheezes Cardiovascular exam: PRESENT: RRR. ABSENT: diastolic murmur, rubs, systolic murmur Rectal exam: PRESENT: deferred Musculoskeletal exam: PRESENT: other - The surgical incisions are healing. There is no purulent drainage. Swelling is improving with improving range of motion. Results Laboratory Results: WBC 7.1 10^3/uL (4.0-10.5) 01/20/20 05:18 RBC 4.29 10^6/uL (4.35-5.55) L 01/20/20 05:18 Hgb 12.4 g/dL (13.5-17.0) L 01/20/20 05:18 Hct 36.7 % (37.9-51.0) L 01/20/20 05:18 MCV 86 fl (80-97) 01/20/20 05:18 MCH 28.9 pg (27.0-33.4) 01/20/20 05:18 MCHC 33.8 g/dL (32.0-36.0) 01/20/20 05:18 RDW 13.7 % (11.5-14.0) 01/20/20 05:18 Plt Count 341 10^3/uL (150-450) 01/20/20 05:18 Lymph % (Auto) 17.5 % (13-45) 01/17/20 01:01 [place] % (Auto) 9.4 % (3-13) 01/17/20 01:01 Eos % (Auto) 1.6 % (0-6) 01/17/20 01:01 Baso % (Auto) 0.4 % (0-2) 01/17/20 01:01 Absolute Neuts (auto) 10.4 10^3/uL (1.7-8.2) H 01/17/20 01:01 Absolute Lymphs (auto) 2.5 10^3/uL (0.5-4.7) 01/17/20 01:01 Absolute Monos (auto) 1.4 10^3/uL (0.1-1.4) 01/17/20 01:01 Absolute Eos (auto) 0.2 10^3/uL (0.0-0.6) 01/17/20 01:01 Absolute Basos (auto) 0.1 10^3/uL (0.0-0.2) 01/17/20 01:01 Seg Neutrophils % 71.1 % (42-78) 01/17/20 01:01 ESR 91 mm/hr (0-15) H 01/20/20 05:18 Sodium 134.0 mmol/L (137-145) L 01/17/20 01:01 Potassium 4.3 mmol/L (3.6-5.0) 01/17/20 01:01 Chloride 96 mmol/L (98-107) L 01/17/20 01:01 Carbon Dioxide 28 mmol/L (22-30) 01/17/20 01:01 Anion Gap 10 (5-19) 01/17/20 01:01 BUN 6 mg/dL (7-20) L 01/17/20 01:01 Creatinine 0.90 mg/dL (0.52-1.25) 01/20/20 05:18 Est GFR ( Amer) > 60 (>60) 01/20/20 05:18 Est GFR (MDRD) Non-Af > 60 (>60) 01/20/20 05:18 Glucose 142 mg/dL (75-110) H 01/17/20 01:01 Calcium 9.2 mg/dL (8.4-10.2) 01/17/20 01:01 Total Bilirubin 0.5 mg/dL (0.2-1.3) 01/17/20 01:01 Direct Bilirubin 0.3 mg/dL (0.0-0.4) 01/17/20 01:01 Neonat Total Bilirubin Not Reportable 01/17/20 01:01 Neonat Direct Bilirubin Not Reportable 01/17/20 01:01 Neonat Indirect Bili Not Reportable 01/17/20 01:01 AST 33 U/L (17-59) 01/17/20 01:01 ALT 35 U/L (<50) 01/17/20 01:01 Alkaline Phosphatase 91 U/L (38-126) 01/17/20 01:01 C-Reactive Protein 36.9 mg/L (<10.0) H 01/20/20 05:18 Total Protein 7.1 g/dL (6.3-8.2) 01/17/20 01:01 Albumin 4.0 g/dL (3.5-5.0) 01/17/20 01:01 Time Trough Drawn 0518 01/20/20 05:18 Vancomycin Trough 14.5 ug/mL (5.0-20.0) 01/20/20 05:18 Impressions: Hand X-Ray 01/17/20 00:46 IMPRESSION: No evidence of acute bony injury to the hand. Soft tissue swelling. No retained radiopaque foreign body Plan Plan of Treatment: The patient has been discharged with an 11 day course of oral Linezolid per infectious disease recommendations. He will wash his hand with soap and water at least four times daily. He has been instructed to follow-up in [address] Cook at [phone]. Time Spent: Greater than 30 Minutes Stroke Is this a Stroke Patient?: No Acute Heart Failure Is this a Heart Failure Patient?: No
[2020-01-20 17:11] VITALS: BP 171/92
== END 2020-01-20 17:38 | disposition home or self-care (01) | DRG 500 ==
LOC: ER 22:42 → EH 01-17 06:35 → 4S 01-17 13:37
PROVIDERS: ADMIT Orthopaedic Surgery; ATTEND Orthopaedic Surgery
PROC: 0L980ZX Drainage of Left Hand Tendon, Open Approach, Diagnostic (ICD-10-PCS; principal; 2020-01-17 10:30)
DX: M65.842 Other synovitis and tenosynovitis, left hand (principal); A41.9 Sepsis, unspecified organism; I10 Essential (primary) hypertension; F17.210 Nicotine dependence, cigarettes, uncomplicated; Z72.89 Other problems related to lifestyle
CPT/HCPCS: 36415; 80053; 80202; 82565; 85025; 85027; 85652; 86140; 87015; 87040; 87070; 87075; 87077; 87101; 87116; 87205; 87206; 96361; 96365; 96375; 99285; J0713; J2250; J2270; J2405; J2543; J2704; J3010; J3370; J3490; J7030; J7060